=== PATIENT | male | born 1980 | race Asian ===

== ENCOUNTER 2016-10-31 17:04 | Emergency (ER) | payer OTHER ==
--- NOTE | ~2016-10-31 | CT2 ---
[facility] A Service of [facility] RADIOLOGY TEXT RESULTS PATIENT: NIKI GOULD LOCATION: [facility] : 76 UNIT #: [id number] AGE: [address]: Figueroa Lopez MD SEX: M ORDER DR: [id number] [facility] [address] [place], [place] [address] [id number] MR#: [id number] Acc #: [id number] NAME: NIKI GOULD : 1980 SEX: M STUDY DATE/TIME: 10/31/2016 17:47 UNIT: [facility] ROOM: STUDY DESCRIPTION: CT Abd and Pelv W Cont Attending Physician: Figueroa Lopez M.D. Ordering Physician: Figueroa Lopez M.D. Primary Care Physician: No Primary Care Physician MEDICAL IMAGING REPORT This report is preliminary unless electronic signature is present EXAM CT abdomen pelvis HISTORY Left lower quadrant abdominal pain for last few weeks 2 weeks, with bloating, pain is worse at night. Patient has some nausea vomiting and diarrhea with the pain. No history of cancer. No history of trauma. TECHNIQUE This CT exam was performed with one or more of the following radiation dose reduction techniques: automatic control, adjustment of mA and/or kV according to patient size, and iterative reconstruction. COMMENT CT abdomen and pelvis performed during the intravenous administration of 100 mL of Isovue-370. There is no previous. Lung bases are clear. The liver is unremarkable. The gallbladder is probably partially contracted with minimal pericholecystic fluid. The appearance is nonspecific. The spleen, pancreas and adrenal glands are normal. Bilateral kidneys are normal. The appendix is radiographically unremarkable. Evaluation of the pelvis shows largely decompressed urinary bladder. There is a large amount of gas in the rectum. I believe there are a few left colon/sigmoid diverticula. There is mild gaseous distension of the transverse colon. There is mild gaseous distension of multiple loops of small bowel with more gas in the small bowel than typically seen. This can be a manifestation of air swallowing but please correlate for clinical concern for some type of bacterial overgrowth. GI followup may be helpful. There is no obstruction, free air or drainable fluid collection suspected. Abdominal aorta is unremarkable. No lymphadenopathy suspected. [facility] A Service of [facility] RADIOLOGY TEXT RESULTS PATIENT: NIKI GOULD LOCATION: [facility] : 76 UNIT #: [id number] AGE: [address]: Figueroa Lopez MD SEX: M ORDER DR: IMPRESSION 1. The gallbladder is partially contracted with a minimal amount of pericholecystic fluid. There is a very nonspecific finding. Please correlate further clinically. 2. I suspect there are a few left colon diverticula but there is no CT evidence for diverticulitis. This a large amount of gas in the rectum and there is a mild gaseous distension of portions of the colon especially the transverse colon. The appendix is radiographically normal and there is nothing to suggest bowel obstruction, free air or drainable fluid collection. 3. There is air within small bowel loops some of which are mildly distended. This is very nonspecific and can be seen when patient's air swallow but please correlate for any clinical concern for bacterial overgrowth. Consider GI followup evaluation. Appearance is nonspecific. Dictated by... Suellen Crocker M.D. THIS IS AN ELECTRONICALLY VERIFIED REPORT Suellen Crocker M.D. at 11/01/2016 8:50 PM DA/miracle TD: 11/01/2016 04:55 JOB #: [id number] MEDICAL IMAGING REPORT Page 1 of 1 COPY
[2016-10-31 14:00] LABS: BASOPHIL% 0.4 % (0-2.5); EOSINOPHIL# 0.1 X10e3 (0-0.7); EOSINOPHIL% 2.6 % (0.0-7.0); HEMATOCRIT 44.9 % (38.0-50.0); HEMOGLOBIN 14.7 gm/dL (13.0-16.0); LYMPHOCYTE# 1.4 X10e3 (1.0-3.5); LYMPHOCYTE% 27.6 % (17.0-45.0); MEAN CELL VOLUME 91.9 FL (83-96); MEAN CORPUSCULAR HEMOGLOBIN 30.2 PG (28-34); MEAN CORPUSCULAR HGB CONC 32.9 g/dL (30-36); MEAN PLATELET VOLUME 9.8 FL (6.5-11.5); MONOCYTE# 0.4 X10e3 (0-1.0); MONOCYTE% 7.4 % (3.0-12.0); PLATELET COUNT 181 X10e3 (140-420); RED BLOOD COUNT 4.88 X10e (3.90-5.60); RED CELL DISTRIBUTION WIDTH 12.8 % (11.0-15.5); WHITE BLOOD COUNT 4.9 X10e3 (4.0-10.5)
[2016-10-31 14:02] LABS: DIFF IND NO
[2016-10-31 14:32] LABS: ALBUMIN SERUM 4.2 g/dL (3.5-5.0); BILIRUBIN, DIRECT 0.2 mg/dL (0.0-0.2); BILIRUBIN,INDIRECT 0.6 mg/dL (0.0-0.9); BILIRUBIN,TOTAL 0.8 mg/dL (0.2-2.0); CALCIUM SERUM 9.2 mg/dL (8.4-10.2); CREATININE SERUM 0.8 mg/dL (0.6-1.4); GLOM FILT RATE Estimated 114.2 mL/min (>60); POTASSIUM 3.8 mmol/L (3.5-5.1); PROTEIN TOTAL SERUM 7.4 g/dL (6.0-8.3)
[2016-10-31 17:51] LABS: URINE SOURCE CLEAN CATCH
[2016-10-31 17:57] LABS: URINE APPEARANCE CLEAR; URINE BILIRUBIN NEG (NEG); URINE BLOOD NEG (NEG); URINE COLOR YELLOW; URINE GLUCOSE NEG (NEG); URINE KETONE NEG (NEG); URINE LEUKOCYTE ESTERASE NEG (NEG); URINE NITRATE NEG (NEG); URINE PH 6.5 (5-8); URINE PROTEIN NEG (NEG); URINE SPECIFIC GRAVITY 1.009 (1.003-1.035); URINE UROBILINOGEN 0.2 MG/DL (NEG)
[2016-10-31 18:23] LABS: CULTURE INDICATED? NO
== END 2016-10-31 19:05 | disposition home or self-care (01) ==
LOC: CED 17:04
DX: R10.9 Unspecified abdominal pain (principal); F17.200 Nicotine dependence, unspecified, uncomplicated
CPT/HCPCS: 36415; 74177; 80048; 80076; 81003; 83690; 85025; 96374; 99284; J1885; Q9967